=== PATIENT | male | born 2005 | race Caucasian/White ===

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

== ENCOUNTER 2023-10-04 20:20 | Emergency (ER) | payer MEDICAID, SELFPAY ==
[2023-10-04 20:41] VITALS: BP 128/82; BP 139/91; PULSE 113; PULSE 89; RESP 17; TEMP 36.3; O2SAT 98; O2SAT 99; BMI 20.3
--- NOTE | 2023-10-04 21:27 | ED_ITS ---
HPI - Overdose General Chief Complaint: Overdose Stated Complaint: OVERDOSE + NARCAN Time Seen by Provider: 10/04/23 21:25 Source: patient Mode of arrival: ambulatory Limitations: no limitations History of Present Illness HPI Narrative: Patient inhaler oxycodone 30 mg tablets and a 7 day also sometimes use Xanax earlier today patient uses tab just prior to arrival mom was at home when the son did not come down in half an hour she went upstairs to see him found in unconscious condition slided to the bed blue not breathing mother gave him 2 IN Narcan without much response started CPR and patient responded agitated when EMS reached no common cooperative EMS also given another 4 mg Narcan Related Data Allergies Allergy/AdvReac Type Severity Reaction Status Date / Time No Known Allergies Allergy Verified 10/04/23 20:41 Review of Systems 2 Review of Systems: Yes all other systems are reviewed and are negative [facility] Social History Social History Alcohol intake: current Alcohol intake frequency: a few times a week Alcohol type: hard liquor Smoked in Last 30 Days: Yes Use of substances other than those prescribed or required for medical reasons: Refusing to respond Advance Directives: No Advance Directives Information Provided: No Physical Exam 2 Vital Signs: Vital Signs: Last Vital Signs Temp 97.5 F 10/05/23 04:00 Pulse 80 10/05/23 04:00 Resp 16 10/05/23 04:00 BP 132/78 10/05/23 04:00 Pulse Ox 99 10/05/23 04:00 O2 Del Method Room Air 10/05/23 04:00 BMI result Body Mass Index 20.3 Appearance: Alert. Oriented X3. No acute distress. Eyes: PERRLA, No Nystagmus ENT: Pharynx normal. Oral Mucosa moist Neck: Normal inspection. Neck supple. CVS: Normal heart rate and rhythm. Pulses normal. Respiratory: No respiratory distress. Equal air entry bilateral, no wheezing/rales/rhonchi Abdomen: Soft and nontender. Bowel sounds are present, no mass palpable, no CVA tenderness Skin: Skin warm and dry. Normal skin color. Normal skin turgor. Extremities: No lower extremity edema. No calf tenderness Neuro: Oriented X 3. No motor deficit. No sensory deficit.No cerebellar signs , cranial nerves II-XII intact Medical Decision Making Medical Decision Making MDM Narrative: Patient with opiate abuse became unresponsive after using oxycodone possible had fentanyl in that requesting to go to detox patient medically cleared will require care team to evaluate the patient 7 amPatient positive for opiates fentanyl and benzo waiting for care team for evaluation Lab Data [facility] Lab Attestation statement: I reviewed the patient's lab results. 10/04/23 21:30 10/04/23 21:30 Labs: Lab Results 10/04/23 10/04/23 10/05/23 Range/Units 21:30 22:16 01:19 WBC 11.1 H (4.8-10.8) X10*3/uL RBC 5.41 (4.60-5.80) X10*6/uL Hgb 15.9 (14.0-18.0) g/dl Hct 45.5 (42.0-52.0) % MCV 84.1 (80.0-98.0) fL MCH 29.4 (27.0-33.0) pg MCHC 34.9 (31.0-36.0) g/dl RDW 11.8 (11.0-16.0) % Plt Count 228 (160-400) X10*3/uL MPV 10.9 (9.4-12.4) fL Absolute Nucleated RBC 0.000 (0.0-0.012) X10*3/uL Nucleated RBC % (auto) 0.0 (0.0-0.2) /100WBC Sodium 141 (135-145) mmol/L Potassium 4.4 (3.3-5.1) mmol/L Chloride 105 (96-108) mmol/L Carbon Dioxide 27 (22-29) mmol/L Anion Gap 13 (12-20) BUN 15 (9-16) mg/dL Creatinine 0.82 (0.5-1.4) mg/dL Estim Creat Clear Calc 138.2 Estimated GFR > 60 Random Glucose 90 (60-115) mg/dL Calcium 9.5 (8.4-10.2) mg/dL Total Bilirubin 0.5 (0.0-1.0) mg/dL AST 62 H (5-37) U/L ALT 68 H (0-40) U/L Alkaline Phosphatase 74 (39-117) U/L Total Protein 7.0 (6.5-8.0) g/dL Albumin 4.0 (3.5-5.0) g/dL Urine Opiates Screen POSITIVE H (Not Detect) Urine Fentanyl Screen POSITIVE H (Not Detect) Ur Barbiturates Screen Not Detected (Not Detect) Ur Phencyclidine Scrn Not Detected (Not Detect) Ur Amphetamines Screen Not Detected (Not Detect) U Benzodiazepines Scrn POSITIVE H (Not Detect) Urine Cocaine Screen Not Detected (Not Detect) U Marijuana (THC) Screen Not Detected (Not Detect) Ethyl Alcohol < 10 mg/dL COVID-19 ([facility]) Negative (Negative) COVID-19 Clin Com See Note Discharge Plan Discharge Clinical Impression: Drug overdose Patient Disposition: Still a Patient
[2023-10-04 21:48] LABS: Hematocrit 45.5 % (42.0-52.0); Hemoglobin 15.9 g/dl (14.0-18.0); Mean Corpuscular HGB Conc 34.9 g/dl (31.0-36.0); Mean Corpuscular Hemoglobin 29.4 pg (27.0-33.0); Mean Corpuscular Volume 84.1 fL (80.0-98.0); Mean Platelet Volume 10.9 fL (9.4-12.4); Platelet Count 228 X10*3/uL (160-400); Red Blood Count 5.41 X10*6/uL (4.60-5.80); Red Cell Distribution Width 11.8 % (11.0-16.0); White Blood Count 11.1 X10*3/uL (4.8-10.8)
[2023-10-04 22:01] LABS: Alanine Aminotransferase 68 U/L (0-40); Alkaline Phosphatase 74 U/L (39-117); Anion Gap 13 (12-20); Aspartate Amino Transferase 62 U/L (5-37); Bilirubin Total 0.5 mg/dL (0.0-1.0); Blood Urea Nitrogen 15 mg/dL (9-16); Calcium 9.5 mg/dL (8.4-10.2); Carbon Dioxide 27 mmol/L (22-29); Chloride 105 mmol/L (96-108); Creatinine Clr Calc Pharmacy 138.2; Estimated Glomerular Filt Rate > 60; Ethanol < 10 mg/dL; Glucose Random 90 mg/dL (60-115); Potassium 4.4 mmol/L (3.3-5.1); Sodium 141 mmol/L (135-145)
[2023-10-04 22:38] LABS: COVID-19 Test Negative (Negative); IDNOW Serial# 6674DD1D
--- NOTE | 2023-10-04 23:54 | PC.NURSE ---
Patient is alert and orient ed x4, VSS. Patient denies any pain. Patient's mother at bedside. Patient requested and provided with butter and jelly sandwich, jimena christel, pudding, jello. Patient tolerated well, no nausea/vomiting/abdominal pain. Patient is resting in a hospital bed, watching TV, call loyd within patient's reach. Plan of care ongoing.
[2023-10-05] VITALS: PULSE 82
[2023-10-05 01:15] VITALS: BP 110/71; PULSE 98; RESP 14; TEMP 36.8; O2SAT 97
[2023-10-05 01:52] LABS: Amphetamine Screen Urine Not Detected (Not Detect); Barbiturates, Urine Not Detected (Not Detect); Benzodiazepines Screen Urine POSITIVE (Not Detect); Cannabinoid Screen Urine Not Detected (Not Detect); Cocaine Screen Urine Not Detected (Not Detect); Fentanyl, urine POSITIVE (Not Detect); Opiate Screen Urine POSITIVE (Not Detect); Phencyclidine Screen Urine Not Detected (Not Detect)
[2023-10-05 04:00] VITALS: BP 132/78; PULSE 80; RESP 16; TEMP 36.4; O2SAT 99
--- NOTE | 2023-10-05 04:21 | PC.NURSE ---
Patient is resting with his eyes closed, RR 18, even and non-labored, VSS, no s/s of withdrawal noted. Patient's mother a bedside, call loyd within patient's reach.
--- NOTE | 2023-10-05 07:53 | PC.NURSE ---
Resting quietly, breathing even and unlabored, mom remains at bedside, breafast ordered.
--- NOTE | 2023-10-05 08:40 | PC.NURSE ---
Patient/ mom meeting with recovery
--- NOTE | 2023-10-05 08:59 | HO.SUDE ---
Met with pt and mother in ED2 after consult placed to CARE Team for overdose and possible ATS. Pt had presented
--- NOTE | 2023-10-05 09:12 | HO.SUDE ---
Met with pt and mother in ED2 after consult placed to CARE Team for overdose. Pt had been BIBA for evaluation after being found unresponsive by mother and receiving Narcan. Mother administered Narcan as well as EMS, pt also given rescue breaths and CPR. Pt initially was agitated with EMS and refusing vitals requiring HPD assistance. Upon arrival pt calm and cooperative. Changed over to hospital attire and belongings secured in decon room. Pt laying in bed, awake, alert, guarded and difficult to engage in conversation. Pt denies current withdrawal symptoms. Does not appear to be uncomfortable. Difficult to obtain substance use history, pt reports between 10-120 mg oxycodone, IN, daily, off and on x 1.5 years. Pt aware UDS was positive for fentanyl. Discussed drug supply and presence of xylazine and educated pt and mother on Narcan's abilities and lack thereof with non opioid substances. Pt also reports intermittent IN benzodiazepine use. Educated pt on overdose risk with polysubstance use. Pt denies hx overdoses. Pt reports Suboxone x 2, both resulted in precipitated withdrawal. Educated pt on microdosing and avoiding precipitated withdrawal if pt is interested. Denies hx methadone. Denies receiving other tx for OUD, including ATS admissions. Pt reports a few months of abstinence after stopping cold turkey, however, decided he wanted to continue with opioid use. Discussed recovery options and supports including ATS, Debbie Long, KIKA, recovery coaching, therapy, meetings. Pt declines interest at this time. Pt states I can do it on my own. Pt and mother report family hx of ZHANE, pts grandparents have OUD and mother has AUD. Mother very familiar with recovery resources available. Pt wishes to discharge home with Narcan, mother agreeable. Pt and mother deny other questions or concerns for t/w. Both encouraged to reach out if needed. Discussed with pts RN.
[2023-10-05 09:24] VITALS: BP 127/72; PULSE 71; RESP 13; O2SAT 98
[2023-10-05] MEDS: Naloxone HCl Nasal TAKE HOME 4 MG SPRAY 8 MG NOSTRILALT (10:03)
--- NOTE | 2023-10-05 10:09 | PC.NURSE ---
Discharge instructions reviewed with patient/ parents who verbalized understanding.
== END 2023-10-05 10:09 | disposition home or self-care (01) ==
PROVIDERS: Emergency Provider Internal Medicine
DX: T40.2X1A Poisoning by other opioids, accidental (unintentional), initial encounter (principal); F11.10 Opioid abuse, uncomplicated; Y92.003 Bedroom of unspecified non-institutional (private) residence as the place of occurrence of the external cause; Z11.52 Encounter for screening for COVID-19
CPT/HCPCS: 36415; 80053; 80307; 85027; 87635; 99284; 99285

== ENCOUNTER 2023-10-25 17:29 | Emergency (ER) | payer MEDICAID, SELFPAY ==
[2023-10-25 18:41] VITALS: BP 140/92; PULSE 118; RESP 18; TEMP 36.1; O2SAT 98; BMI 25.4
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
== END 2023-10-26 00:27 | disposition left against medical advice (07) ==
PROVIDERS: Emergency Provider Emergency Medicine
DX: T22.251A Burn of second degree of right shoulder, initial encounter (principal); X16.XXXA Contact with hot heating appliances, radiators and pipes, initial encounter; Y93.89 Activity, other specified; Y92.012 Bathroom of single-family (private) house as the place of occurrence of the external cause; Y99.9 Unspecified external cause status
CPT/HCPCS: 99281

== ENCOUNTER 2023-10-26 00:29 | Emergency (ER) | payer MEDICAID, SELFPAY ==
[2023-10-26 00:38] VITALS: BP 147/87; BP 156/93; PULSE 114; RESP 18; TEMP 36.7; O2SAT 96; O2SAT 98; BMI 25.7
[2023-10-26] MEDS: Ondansetron ODT 4 MG TAB.RAPDIS TRANSLINGU (00:55)
[2023-10-26] MEDS: LORazepam 1 MG TABLET PO (00:55)
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
[2023-10-26] MEDS: Silver Sulfadiazine 1 % Cream 20 GM TUBE 1 APPL TOPICAL (01:45)
[2023-10-26] MEDS: Naloxone HCl Nasal TAKE HOME 4 MG SPRAY 8 MG NOSTRILALT (01:48)
[2023-10-26 02:04] VITALS: BP 128/80; PULSE 108; RESP 18; TEMP 36.6; O2SAT 96
== END 2023-10-26 02:15 | disposition home or self-care (01) ==
LOC: HO.ED 02:11
PROVIDERS: Emergency Provider Emergency Medicine
DX: T40.1X1A Poisoning by heroin, accidental (unintentional), initial encounter (principal); R40.4 Transient alteration of awareness; Y92.9 Unspecified place or not applicable; T22.251A Burn of second degree of right shoulder, initial encounter; X16.XXXA Contact with hot heating appliances, radiators and pipes, initial encounter; Y93.89 Activity, other specified; Y92.012 Bathroom of single-family (private) house as the place of occurrence of the external cause; Y99.9 Unspecified external cause status
CPT/HCPCS: 17250; 99283; 99284

== ENCOUNTER 2025-05-28 18:08 | Emergency (ER) | payer MEDICAID, SELFPAY ==
[2025-05-28 18:34] VITALS: BP 133/67; PULSE 58; O2SAT 98
[2025-05-28 18:40] VITALS: BP 139/88; PULSE 61; RESP 14; TEMP 36.8; O2SAT 95; O2SAT 98; BMI 25.1
[2025-05-28 18:49] VITALS: BP 139/88; PULSE 61; RESP 14; TEMP 36.8; O2SAT 95
--- NOTE | 2025-05-28 19:40 | ED_ITS ---
HPI - General Adult General Chief complaint: Overdose Stated complaint: OD, NARCAN GIVEN Time Seen by Provider: 05/28/25 18:26 Source: patient Limitations: no limitations History of Present Illness ED Provider: Hilary Barbour PA-C HPI narrative: 20-year-old male with a history of opiate use disorder, presents after overdose. Patient was found unresponsive in his home, his family administered 4 mg of intranasal Narcan. The patient became spontaneously alert and responsive. He does admit to using 2 bags of heroin prior to his overdose. Denies SI or HI. The patient declines recovery services at this time. Related Data Previous Rx's ?Medication ?Instructions ?Recorded naloxone 4 mg/actuation nasal 4 mg intranasal Q2M PRN opioid 10/05/23 spray (Narcan) overdose #2 ea silver sulfadiazine 1 % topical 1 appl topical BID 5 d ays #25 grams 10/26/23 cream (Silvadene) Allergies Allergy/AdvReac Type Severity Reaction Status Date / Time No Known Allergies Allergy Verified 05/28/25 18:48 Review of Systems Review of Systems: Yes all other systems are reviewed and are negative Constitutional: Constitutional: Reports chills, Denies fatigue and Denies fever(s) Cardiovascular: Cardiovascular: Denies chest pain and Denies dyspnea Respiratory: Respiratory: Denies dyspnea Gastrointestinal: Gastrointestinal: Denies abdominal pain, Denies diarrhea, Denies nausea and Denies vomiting Endocrine: Endocrine: Denies fatigue PMFSH Past Medical History Attestation statement: The following information was validated with the patient. Social History Social History Alcohol intake: current Alcohol intake frequency: a few times a month Alcohol type: hard liquor Smoked in Last 30 Days: Yes Use of substances other than those prescribed or required for medical reasons: Yes Substance Use Type: Heroin Advance Directives: No Advance Directives Information Provided: No Do you have a plan to hurt others: No Plan Physical Exam ED Exam Exam: Alert Vital Signs: Vital Signs - 24 hr 05/28/25 18:40 05/28/25 18:49 Temperature 98.2 F 98.2 F Pulse Rate 61 61 Respiratory Rate 14 14 Blood Pressure 139/88 139/88 Pulse Oximetry 95 95 Oxygen Delivery Method Room Air Room Air BMI result Body Mass Index 25.1 Const Orientation/consciousness: patient oriented x3 Eyes Other: Non pinpoint pupils Resp Effort & Inspection: normal respiratory effort Cardio Other: Normal peripheral perfusion Skin Other: Warm dry no rash Neuro General: patient oriented x3, gait normal, no focal motor deficits and CN's II- XI intact bilaterally Psych Other: Calm, cooperative, appears clinically sober since arrival Course Reevaluation(s) Reevaluation #1: Patient declines recovery, he wants to be discharged, he does not want further observation. The patient is hemodynamically stable, he appears clinically sober, I have no grounds to hold him. We will order Narcan for him to take with him, preparing discharge now. Time: 19:42 Medical Decision Making Medical Decision Making MDM Narrative: 20-year-old male with a history of opiate use disorder, presents after overdose. Patient was found unresponsive in his home, his family administered 4 mg of intranasal Narcan. The patient became spontaneously alert and responsive. He does admit to using 2 bags of heroin prior to his overdose. Denies SI or HI. The patient declines recovery services at this time. Problem: Opiate use disorder History: Per patient I have considered the following differential diagnoses: Opiate overdose, SI, HI, decompensated psychiatric illness, drug/alcohol intoxication Plan: We will continue to monitor the patient for respiratory depression, I explained to him that we like to observe for 3 hours. I have offered the patient resources for detox, I have offered for him to see the it disaster recovery manager, he declines. Discharge Plan Discharge Clinical Impression: Opiate overdose Patient Disposition: Home, Self-Care Instructions: Narcotic Use Disorder (ED) Additional Instructions: You declined resources for detox or to be seen by our recovery team. You are being sent home with intranasal Narcan. To note, you can return at any time if you so choose to seek help for your opiate use disorder. If you decide you want to stop or cut down on how much you?re using, you can call or walk into our outpatient Addiction Treatment office: [facility] (M-F 9am-5p) [address] [place] [address], [phone] Use new supplies whenever possible to lessen the chances of infections and other illnesses.? ?If you need more supplies, please go [facility],? [address] [place] [address] OR you can call or text to coordinate delivery of safer supplies. You were also provided a list of several treatment providers in the area.? If you experience any worsening symptoms you cannot control please return to the ED or call 911. Please follow up at your next appointment. Things to look out for are fevers, chest pain, shortness of breath, severe pain, dizziness, fainting or any other concerns. Prescriptions: No Action silver sulfadiazine [Silvadene] 1 % cream 1 appl topical BID 5 Days Qty: 25 0RF Rx Instructions: apply a 1.5 mm thickness naloxone [Narcan] 4 mg/actuation spray,non-aerosol 4 mg intranasal Q2M PRN (Reason: opioid overdose) Qty: 2 0RF Rx Instructions: spray 1 dose into ONE nostril; alternate nostrils w each dose until help arrives Print Language: Nepali
[2025-05-28] MEDS: Naloxone HCl Nasal TAKE HOME 4 MG SPRAY 8 MG NOSTRILALT (19:54)
[2025-05-28 19:55] VITALS: BP 139/88; PULSE 61; RESP 14; TEMP 36.8; O2SAT 95
== END 2025-05-28 19:57 | disposition home or self-care (01) ==
PROVIDERS: Emergency Provider Emergency Medicine
DX: T65.91XA Toxic effect of unspecified substance, accidental (unintentional), initial encounter (principal); R40.4 Transient alteration of awareness; Y92.9 Unspecified place or not applicable
CPT/HCPCS: 99285